=== PATIENT | male | born 2000 | race Two or more races ===

== ENCOUNTER 2023-01-28 13:03 | Emergency (ER) | payer OTHER ==
[~2023-01-28] VITALS: Ht 177.8 cm; Wt 57.2 kg
[2023-01-28] MEDS ORDERED: TDAP [DIPH/PERTUSSIS/TET] 0.5 ML VIAL IM ONE ×2 (13:30→13:43)
[2023-01-28] MEDS ORDERED: LIDOCAINE 1% INJ 50 ML MDV IJ ONE ×2 (13:30→13:42)
[2023-01-28] MEDS ORDERED: BACI/NEOM/POLY B OINT PKT 1 UDPKT PACKET TP ONE (13:30)
[2023-01-28] MEDS ORDERED: BACI/NEOM/POLY B OINT PKT 1 UDPKT PACKET ONE (13:42)
[2023-01-28] MEDS ORDERED: HYDR-4303 PO (15:15)
[2023-01-28] MEDS ORDERED: CEPH500C2 PO (15:15)
[2023-01-28] MEDS ORDERED: IBUP-1955 PO (15:15)
[2023-01-28 15:50] VITALS: BP 119/72; TEMP 98.4; O2SAT 99
== END 2023-01-28 15:51 | disposition home or self-care (01) ==
LOC: ER 13:14
DX: S62.636A Displaced fracture of distal phalanx of right little finger, initial encounter for closed fracture (principal); Z60.2 Problems related to living alone; W04.XXXA Fall while being carried or supported by other persons, initial encounter; Y93.89 Activity, other specified; Y92.89 Other specified places as the place of occurrence of the external cause; Y99.8 Other external cause status
CPT/HCPCS: 12001; 73140; 90471; 90715; 99283; A6403; J3490